=== PATIENT | female | born 1975 | race Caucasian/White ===

== ENCOUNTER → 2017-11-14 | Outpatient (CLI) | payer OTHER ==
--- NOTE | 2017-11-14 09:49 | RADIOLOGY IMAGING REPORT ---
FACILITY: [facility] PATIENT NAME: Gerda Cedeño : 1975 MR: [id number] V: [id number] EXAM DATE: ORDERING PHYSICIAN: ABDULAZIZ BECERRA TECHNOLOGIST: Location: [facility] [place] Patient: Gerda Cedeño : 1975 Visit/Account:[id number] Date of Sevice: 11/14/2017 EXAMINATION: Doppler ultrasound carotid HISTORY: Hollenhorst plaque. Right eye blurry vision. COMPARISON: None. TECHNIQUE: Real-time grayscale, color flow and Doppler sonography of the cervical carotid and vertebr al arteries is performed. Stenosis % is determined from velocity criteria extrapolated from diameter data as defined by the Soc iety of Radiologists in Ultrasound Consensus Conference Radiology 2003; 229;340-346. FINDINGS: Plaque: None. Waveforms: Normal. Vertebral arteries: Antegrade flow in both vertebral arteries. Peak systolic velocities are listed below in centimeters/second: Right: CCA proximal: 92 CCA mid: 70 CCA distal: 56 ICA proximal: 45 ICA mid: 80 ICA distal: 104 ECA: 62 Vertebral: 43 ICA/CCA ratio: 1.1 Left: CCA proximal: 92 CCA mid: 71 CCA distal: 75 ICA proximal: 71 ICA mid: 63 ICA distal: 76 ECA: 61 Vertebral: 47 ICA/CCA ratio: 1.0 IMPRESSION: Normal carotid ultrasound without plaque or stenosis. Report Dictated By: Katherine Thompson MD at 11/14/2017 9:42 AM Report E-Signed By: Katherine Thompson MD at 11/14/2017 9:44 AM WSN:[email or web address]
== END ==
LOC: US 07:54
PROVIDERS: ATTEND Technician/Technologist Ophthalmic
DX: H34.211 Partial retinal artery occlusion, right eye (principal)
CPT/HCPCS: 93880